=== PATIENT | female | born 1965 | race Caucasian/White ===

== ENCOUNTER 2020-03-21 21:58 | Emergency (ER) | payer BC, OTHER ==
--- NOTE | 2020-03-21 22:29 | EDM.PDOC ---
ED HPI GENERAL MEDICAL PROBLEM - General Chief Complaint: Respiratory Problem Stated Complaint: SPOKE TO NURSE Time Seen by Provider: 03/21/20 22:10 Source of Information: Reports: Patient History Limitations: Reports: No Limitations - History of Present Illness INITIAL COMMENTS - FREE TEXT/NARRATIVE: 55F presents for multiple complaints x6 days. Notes fevers, chills, nausea, back pain, shakiness, generalized weakness for last several days. Had negative COVID swab earlier this week. headache Pain Score (Numeric/FACES): 8 - Related Data Allergies Allergy/AdvReac Type Severity Reaction Status Date / Time No Known Allergies Allergy Verified 03/21/20 22:32 Home Meds: Home Meds Acebutolol [Sectral] 100 mg PO BID 03/21/20 [History] Citalopram [Citalopram HBr] 40 mg PO DAILY 03/21/20 [History] Meloxicam [Mobic] 15 mg PO DAILY 03/21/20 [History] Tolterodine [Detrol] 8 mg PO DAILY 03/21/20 [History] ED ROS GENERAL - Review of Systems Review Of Systems: Comprehensive ROS is negative, except as noted in HPI. ED EXAM, GENERAL - Physical Exam Exam: See Below Exam Limited By: Altered Mental Status General Appearance: Alert, WD/WN, No Apparent Distress Throat/Mouth: Normal Inspection Head: Atraumatic, Normocephalic Respiratory/Chest: No Respiratory Distress, Lungs Clear, Normal Breath Sounds, No Accessory Muscle Use Cardiovascular: Normal Peripheral Pulses, Tachycardia GI/Abdominal: Soft, Non-Tender, No Distention Neurological: Alert, Oriented Psychiatric: Normal Affect, Normal Mood Skin Exam: Warm, Dry Course - Vital Signs Last Recorded V/S: Last Vital Signs Temp 98.7 F 03/22/20 00:00 Pulse 111 H 03/21/20 22:28 Resp 20 03/21/20 22:28 BP 144/78 H 03/21/20 22:28 Pulse Ox 94 L 03/21/20 22:28 - Orders/Labs/Meds Orders: Active Orders 24 hr Category Date Time Status CULTURE BLOOD [BC] Stat Lab 03/22/20 00:00 Received CULTURE BLOOD [BC] Stat Lab 03/22/20 01:45 Ordered cefTRIAXone [Rocephin in Dextrose,Iso-Osm 1 GM/50 ML] 1 Med 03/22/20 01:44 Active gm Premix Bag 1 bag IV ONETIME Blood Culture x2 Reflex Set [OM.PC] Stat Oth 03/22/20 01:45 Ordered Medication Orders Ceftriaxone Sodium/Dextrose 1 (gm/ Premix) 50 mls @ 100 mls/hr IV ONETIME ONE Stop: 03/22/20 02:13 Labs: Laboratory Tests 03/21/20 03/21/20 03/21/20 Range/Units 23:12 23:12 23:12 WBC 13.02 H (4.0-11.0) K/uL RBC 4.98 (4.30-5.90) M/uL Hgb 13.0 (12.0-16.0) g/dL Hct 38.6 (36.0-46.0) % MCV 77.5 L (80.0-98.0) fL MCH 26.1 L (27.0-32.0) pg MCHC 33.7 (31.0-37.0) g/dL RDW Std Deviation 40.9 (28.0-62.0) fl RDW Coeff of Jessica 15 (11.0-15.0) % Plt Count 193 (150-400) K/uL MPV 11.00 (7.40-12.00) fL Neut % (Auto) 83.9 H (48.0-80.0) % Lymph % (Auto) 5.8 L (16.0-40.0) % Ray % (Auto) 10.1 (0.0-15.0) % Eos % (Auto) 0.1 (0.0-7.0) % Baso % (Auto) 0.1 (0.0-1.5) % Neut # (Auto) 10.9 H (1.4-5.7) K/uL Lymph # (Auto) 0.8 (0.6-2.4) K/uL Ray # (Auto) 1.3 H (0.0-0.8) K/uL Eos # (Auto) 0.0 (0.0-0.7) K/uL Baso # (Auto) 0.0 (0.0-0.1) K/uL Lactate (0.20-2.00) mmol/L Sodium 127 L (136-145) mmol/L Potassium 3.4 L (3.5-5.1) mmol/L Chloride 94 L (98-107) mmol/L Carbon Dioxide 23.3 (21.0-32.0) mmol/L BUN 16 (7.0-18.0) mg/dL Creatinine 1.4 H (0.6-1.0) mg/dL Est Cr Clr Drug Dosing 42.00 mL/min Estimated GFR (MDRD) 38.9 ml/min Glucose 122 H (74-106) mg/dL Calcium 9.5 (8.5-10.1) mg/dL Magnesium 1.7 L (1.8-2.4) mg/dL Total Bilirubin 0.9 (0.2-1.0) mg/dL AST 48 H (15-37) IU/L ALT 51 (14-63) IU/L Alkaline Phosphatase 236 H (46-116) U/L Troponin I < 0.050 (0.000-0.056) ng/mL C-Reactive Protein 32.70 H (0.00-0.90) mg/dL B-Natriuretic Peptide 33 (<100) PG/ML Total Protein 7.7 (6.4-8.2) g/dL Albumin 2.7 L (3.4-5.0) g/dL Globulin 5.0 H (2.6-4.0) g/dL Albumin/Globulin Ratio 0.5 L (0.9-1.6) Urine Color Urine Appearance Urine pH (5.0-8.0) Ur Specific [place] (1.001-1.035) Urine Protein (NEGATIVE) mg/dL Urine Glucose (UA) (NEGATIVE) mg/dL Urine Ketones (NEGATIVE) mg/dL Urine Occult Blood (NEGATIVE) Urine Nitrite (NEGATIVE) Urine Bilirubin (NEGATIVE) Urine Ictotest Urine Urobilinogen (<2.0) EU/dL Ur Leukocyte Esterase (NEGATIVE) Urine RBC (0-2/HPF) Urine WBC (0-5/HPF) Ur Epithelial Cells (NONE-FEW) Urine Bacteria (NEGATIVE) Urine Mucus (NONE-MOD) COVID-19 (THAI) (NEGATIVE) 03/21/20 03/21/20 03/22/20 Range/Units 23:12 23:12 00:35 WBC (4.0-11.0) K/uL RBC (4.30-5.90) M/uL Hgb (12.0-16.0) g/dL Hct (36.0-46.0) % MCV (80.0-98.0) fL MCH (27.0-32.0) pg MCHC (31.0-37.0) g/dL RDW Std Deviation (28.0-62.0) fl RDW Coeff of Jessica (11.0-15.0) % Plt Count (150-400) K/uL MPV (7.40-12.00) fL Neut % (Auto) (48.0-80.0) % Lymph % (Auto) (16.0-40.0) % Ray % (Auto) (0.0-15.0) % Eos % (Auto) (0.0-7.0) % Baso % (Auto) (0.0-1.5) % Neut # (Auto) (1.4-5.7) K/uL Lymph # (Auto) (0.6-2.4) K/uL Ray # (Auto) (0.0-0.8) K/uL Eos # (Auto) (0.0-0.7) K/uL Baso # (Auto) (0.0-0.1) K/uL Lactate 1.2 (0.20-2.00) mmol/L Sodium (136-145) mmol/L Potassium (3.5-5.1) mmol/L Chloride (98-107) mmol/L Carbon Dioxide (21.0-32.0) mmol/L BUN (7.0-18.0) mg/dL Creatinine (0.6-1.0) mg/dL Est Cr Clr Drug Dosing mL/min Estimated GFR (MDRD) ml/min Glucose (74-106) mg/dL Calcium (8.5-10.1) mg/dL Magnesium (1.8-2.4) mg/dL Total Bilirubin (0.2-1.0) mg/dL AST (15-37) IU/L ALT (14-63) IU/L Alkaline Phosphatase (46-116) U/L Troponin I (0.000-0.056) ng/mL C-Reactive Protein (0.00-0.90) mg/dL B-Natriuretic Peptide (<100) PG/ML Total Protein (6.4-8.2) g/dL Albumin (3.4-5.0) g/dL Globulin (2.6-4.0) g/dL Albumin/Globulin Ratio (0.9-1.6) Urine Color DARK YELLOW Urine Appearance CLOUDY Urine pH 6.0 (5.0-8.0) Ur Specific [place] 1.020 (1.001-1.035) Urine Protein 100 H (NEGATIVE) mg/dL Urine Glucose (UA) NEGATIVE (NEGATIVE) mg/dL Urine Ketones 15 H (NEGATIVE) mg/dL Urine Occult Blood LARGE H (NEGATIVE) Urine Nitrite POSITIVE H (NEGATIVE) Urine Bilirubin SMALL H (NEGATIVE) Urine Ictotest NEGATIVE Urine Urobilinogen 4.0 H (<2.0) EU/dL Ur Leukocyte Esterase MODERATE H (NEGATIVE) Urine RBC 35-40 (0-2/HPF) Urine WBC 75-80 (0-5/HPF) Ur Epithelial Cells FEW (NONE-FEW) Urine Bacteria 2+ H (NEGATIVE) Urine Mucus LIGHT (NONE-MOD) COVID-19 (THAI) NEGATIVE (NEGATIVE) Meds: Medications Generic Name Dose Route Start Last Admin Trade Name Freq PRN Reason Stop Dose Admin Ceftriaxone Sodium/Dextrose 1 50 mls @ 100 mls/hr 03/22/20 01:44 gm/ Premix IV 03/22/20 02:13 ONETIME ONE Discontinued Medications Generic Name Dose Route Start Last Admin Trade Name Prem PRN Reason Stop Dose Admin Acetaminophen 1,000 mg 03/21/20 22:44 03/21/20 23:00 Tylenol Extra Strength PO 03/21/20 22:45 1,000 mg ONETIME ONE Administration Sodium Chloride 1,000 mls @ 999 mls/hr 03/21/20 22:44 03/21/20 23:19 Normal Saline IV 03/21/20 23:44 999 mls/hr .Bolus ONE Administration Ibuprofen 600 mg 03/21/20 22:45 03/21/20 23:01 Motrin PO 03/21/20 22:46 600 mg ONETIME ONE Administration Iopamidol 100 ml 03/22/20 01:06 03/22/20 01:07 Isovue-370 (76%) IVPUSH 03/22/20 01:07 100 ml ONETIME STA Administration - Re-Assessments/Exams Free Text/Narrative Re-Assessment/Exam: Will get labs, CXR, UA, and reassess Labs reveal elevated WBC, hyponatremia, elevated alk phos. COVID testing negative. Will get CT C/A/P as source of infection is unclear Free Text/Narrative Re-Assessment/Exam: 03/22/20 01:54 Labs/imaging remarkable for pyelonephritis. Ceftriaxone ordered. Blood cultures drawn. Discussed risks/benefits of admission vs discharge with patient. Will d/c with PO antibiotics for pyelonephritis. She agrees to return to hospital for inability to tolerate PO, worsening or changing quality of symptoms, or if blood cultures are positive. She demonstrates good health literacy and understanding of return precautions and seriousness of her illness. Departure - Departure Time of Disposition: 01:56 Disposition: Home, Self-Care 01 Condition: Good Clinical Impression: Pyelonephritis - Discharge Information Instructions: Pyelonephritis, Adult, [id number] Referrals: pmd, pmd [Other] Forms: ED Department Discharge Additional Instructions: The following information is given to patients seen in the emergency department who are being discharged to home. This information is to outline your options for follow-up care. We provide all patients seen in our emergency department with a follow-up referral. The need for follow-up, as well as the timing and circumstances, are variable depending upon the specifics of your emergency department visit. If you don't have a primary care physician on staff, we will provide you with a referral. We always advise you to contact your personal physician following an emergency department visit to inform them of the circumstance of the visit and for follow-up with them and/or the need for any referrals to a consulting specialist. The emergency department will also refer you to a specialist when appropriate. This referral assures that you have the opportunity for follow-up care with a specialist. All of these measure are taken in an effort to provide you with optimal care, which includes your follow-up. Under all circumstances we always encourage you to contact your private physician who remains a resource for coordinating your care. When calling for follow-up care, please make the office aware that this follow-up is from your recent emergency room visit. If for any reason you are refused follow-up, please contact the [facility] Emergency Department at and asked to speak to the emergency department ch arge nurse. Sepsis Event Note (ED) - Focused Exam Vital Signs: Vital Signs Temp Pulse Resp BP Pulse Ox 03/22/20 00:00 98.7 F 03/21/20 22:28 39.7 F L 111 H 20 144/78 H 94 L - My Orders Last 24 Hours: My Active Orders 03/22/20 00:00 CULTURE BLOOD [BC] Stat 03/22/20 01:44 cefTRIAXone [Rocephin in Dextrose,Iso-Osm 1 GM/50 ML] 1 gm Premix Bag 1 bag IV ONETIME 03/22/20 01:45 CULTURE BLOOD [BC] Stat Blood Culture x2 Reflex Set [OM.PC] Stat - Assessment/Plan Last 24 Hours: My Active Orders 03/22/20 00:00 CULTURE BLOOD [BC] Stat 03/22/20 01:44 cefTRIAXone [Rocephin in Dextrose,Iso-Osm 1 GM/50 ML] 1 gm Premix Bag 1 bag IV ONETIME 03/22/20 01:45 CULTURE BLOOD [BC] Stat Blood Culture x2 Reflex Set [OM.PC] Stat
[2020-03-21] MEDS ORDERED: Sodium Chloride 0.9% 1,000 ML IV ONE (22:44)
[2020-03-21] MEDS ORDERED: Acetaminophen 500 MG Tab PO ONE (22:44)
[2020-03-21] MEDS ORDERED: Ibuprofen 600 MG Tab PO ONE (22:45)
--- NOTE | 2020-03-21 23:19 | CR ---
INDICATION: Shortness of breath. Fever TECHNIQUE: Chest radiograph 1 view COMPARISON: None FINDINGS: Moderate degradation of image quality noted due to body habitus. Mediastinum: The mediastinum is normal in appearance. The heart silhouette is normal in size and morphology. Lung: Patchy mild airspace opacities present in the medial right lung base. No sign of pleural effusion seen. No pneumothorax is identified. Bone and Soft tissue: Unremarkable for age. IMPRESSION: 1. Patchy mild airspace opacities present in the medial right lung base. These findings can be seen with atelectasis and/or pneumonia. Dictated by Joe Kinney MD @ 03/21/2020 11:17:06 PM Dictated by: Joe Kinney MD @ 03/21/2020 23:17:12 (Electronically Signed)
[2020-03-21 23:40] LABS: BLOOD UREA NITROGEN,BUN 16 mg/dL (7.0-18.0); CARBON DIOXIDE,CO2 23.3 mmol/L (21.0-32.0); CHLORIDE,CL 94 mmol/L (98-107); GLUCOSE RANDOM 122 mg/dL (74-106); POTASSIUM,K 3.4 mmol/L (3.5-5.1); SODIUM,NA 127 mmol/L (136-145)
[2020-03-22] MEDS ORDERED: Iopamidol 755 Mg/ML 100 ML Bottle IVPUSH STA (01:06)
--- NOTE | 2020-03-22 01:26 | CT ---
INDICATION: Fever of unknown origin. COMPARISON: Chest radiograph from earlier this evening TECHNIQUE: : CT examination of the chest was performed with the uneventful intravenous administration of 100 cc of Isovue 370 while 3 mm thick axial sections were obtained from above the apices of the lungs to the lung bases. Please note that all CT scans at this facility use dose modulation, iterative reconstruction, and/or weight-based dosing when appropriate to reduce radiation dose to as low as reasonably achievable. FINDINGS: : There is mild linear scarring in the anterior inferior left lung base, corresponding to the appearance on the chest radiograph. The lungs are otherwise clear with no sign of significant infiltrate or mass. Specifically, the area of patchy right infrahilar density is not identified on today`s study. This may have been a small area of atelectasis which has resolved. There is no sign of mediastinal or hilar mass or adenopathy. The heart is normal in appearance for the patient`s age, as are the aorta and other ascending great vessels. There is no sign of supraclavicular or axillary mass or adenopathy. The visualized superior liver, spleen, pancreas, left kidney, and adrenals are normal in appearance. There is patchy decreased enhancement of the upper pole of the right kidney, suggesting pyelonephritis without a renal abscess. There is a small hiatal hernia. Several lines of surgical abdiel are seen from gastric bypass surgery. The osseous structures are normal in appearance for the patient`s age. IMPRESSION: No sign of any significant pulmonary infiltrate. Decreased enhancement of the upper pole of the right kidney consistent with pyelonephritis. Small hiatal hernia. Please note that all CT scans at this facility use dose modulation, iterative reconstruction, and/or weight-based dosing when appropriate to reduce radiation dose to as low as reasonably achievable. Dictated by Eliseo Sibley MD @ Mar 22 2020 1:14AM Signed by Dr. Eliseo Sibley @ Mar 22 2020 1:24AM
--- NOTE | 2020-03-22 01:37 | CT ---
INDICATION: Fever of unknown origin TECHNIQUE: CT Abdomen and pelvis with i.v. contrast. Coronal and sagittal reformats were obtained. CONTRAST: 100 mL Isovue 370 COMPARISON: None FINDINGS: Lower chest: Unremarkable. Liver: Unremarkable. Spleen: Unremarkable. Pancreas: Unremarkable. Gallbladder: Unremarkable. Kidney: Patchy decreased cortical enhancement right renal upper pole and mid zone are noted, likely due to pyelonephritis. Adrenal: Unremarkable. Bowel: Small hiatal hernia is present with multiple surgical abdiel from previous surgery near the GE junction is seen without interval change. The appendix is not identified with the cecum seen in the right upper quadrant. A small bowel anastomotic staple line is present in the left flank Vascular: Unremarkable. Lymph: Unremarkable. Peritoneum: Unremarkable. No pneumoperitoneum is seen. No significant ascites is noted. Pelvis: Unremarkable. Soft tissue: Unremarkable. Bone: Mild dextroscoliosis of the lumbar spine is present with moderate diffuse degenerative disc disease seen. Severe bilateral hip osteoarthritis is noted. IMPRESSION: 1. Patchy decreased cortical enhancement right renal upper pole and mid zone are noted, likely due to pyelonephritis. Dictated by Joe Kinney MD @ 03/22/2020 1:34:47 AM Please note that all CT scans at this facility use dose modulation, iterative reconstruction, and/or weight-based dosing when appropriate to reduce radiation dose to as low as reasonably achievable. Dictated by: Joe Kinney MD @ 03/22/2020 01:35:36 (Electronically Signed)
[2020-03-22] MEDS ORDERED: cefTRIAXone 1 GM in Premix Bag 1 BAG IV ONE (01:44)
[2020-03-22] MEDS ORDERED: Ciprofloxacin in D5W 400 MG in Premix Bag 1 BAG IV ONE ×2 (02:01)
== END 2020-03-22 03:30 | disposition home or self-care (01) ==
LOC: MW.ED 21:58
DX: N12 Tubulo-interstitial nephritis, not specified as acute or chronic (principal); Z20.828 Contact with and (suspected) exposure to other viral communicable diseases; Z79.899 Other long term (current) drug therapy
CPT/HCPCS: 36415; 71045; 71260; 74177; 80053; 81001; 83605; 83735; 83880; 84484; 85025; 86140; 87040; 87635; 96361; 96365; 99284; A9270; J0744; J7030; Q9967; 99283; U0002